=== PATIENT | female | born 1940 | race Caucasian/White ===

== ENCOUNTER 2020-09-29 11:03 | Day surgery (SDC) | payer MEDICARE, OTHER ==
[2020-09-29] VITALS (10 sets, daily range): BP systolic 115–164; BP diastolic 62–91
[~2020-09-29] VITALS: Ht 175.3 cm; Wt 106.1 kg
[2020-09-29] MEDS ORDERED: diphenhydrAMINE 25mg capsule PO PRN (11:40)
[2020-09-29] MEDS ORDERED: normal saline 1,000 ML IV SCH (11:40)
[2020-09-29] MEDS ORDERED: DIPH-423 PO (12:22)
[2020-09-29] MEDS ORDERED: SIMV-45 PO (12:22)
[2020-09-29] MEDS ORDERED: TRIA1TAB94 PO (12:22)
[2020-09-29] MEDS ORDERED: FLUT5POW4 INH (12:22)
[2020-09-29] MEDS ORDERED: ALBU8.5H8 INH (12:22)
[2020-09-29] MEDS ORDERED: LORA10TA7 PO (12:22)
[2020-09-29] MEDS ORDERED: DEXL60CA3 PO (12:22)
[2020-09-29] MEDS ORDERED: FLUT1BLS4 (12:22)
[2020-09-29 12:28] LABS: ALBUMIN 3.5 G/DL (3.4-5.0); ANION GAP 7 (8-16); BLOOD UREA NITROGEN 20 MG/DL (7-18); BUN/CREATININE RATIO 20.8 (6.6-38.0); CHLORIDE 107 MMOL/L (99-107); CREATININE 0.96 MG/DL (0.40-0.90); GLUCOSE 115 MG/DL (70-104); MAGNESIUM 2.2 MG/DL (1.5-2.4); POTASSIUM 3.6 MMOL/L (3.5-5.1); SODIUM 140 MMOL/L (135-145); TOTAL CARBON DIOXIDE 25.6 MMOL/L (24-32); eGFR 56 ML/MIN
[2020-09-29 12:33] LABS: BASOPHILS # (AUTO) 0.1 X10'3 (0-0.2); EOSINOPHILS # (AUTO) 0.1 X10'3 (0-0.9); EOSINOPHILS % (AUTO) 2.4 % (0-6); HEMATOCRIT 37.9 % (35.0-45.0); HEMOGLOBIN 12.7 g/dl (12.0-16.0); LYMPHOCYTES # (AUTO) 1.5 X10'3 (1.1-4.8); LYMPHOCYTES % (AUTO) 27.7 % (21-51); MEAN CORPUSCULAR HEMOGLOBIN 30.1 PG (27.0-31.0); MEAN CORPUSCULAR HGB CONC 33.5 g/dL (33.0-36.5); MEAN CORPUSCULAR VOLUME 89.7 FL (78-98); MONOCYTES # (AUTO) 0.6 X10'3 (0-0.9); MONOCYTES % (AUTO) 10.6 % (2-12); NEUTROPHILS % (AUTO) 58.3 % (42-75); PLATELET COUNT 188 X10'3 (140-440); RED BLOOD COUNT 4.22 X10'6 (4.20-5.60); WHITE BLOOD COUNT 5.2 X10'3 (4.5-11.0)
[2020-09-29] MEDS ORDERED: LIDOcaine 1% (10mg/ml)w/preservative injection 20ml MDV ONE (13:22)
[2020-09-29] MEDS ORDERED: midazolam 1 mg/ML 2ml injection ONE (13:22)
[2020-09-29] MEDS ORDERED: fentaNYL/PF 50MCG/1 ML 2ML syringe ONE (13:22)
[2020-09-29] MEDS ORDERED: iohexol 350 MG/ML 50ML vial IV ONE (13:23)
[2020-09-29] MEDS ORDERED: heparin 1,000unit/ml 10ml vial 10 ML ONE (13:23)
[2020-09-29] MEDS ORDERED: iohexol 350MG/ML 100ml bottle IV ONE (13:23)
[2020-09-29] MEDS ORDERED: heparin 1,000 UNITS/NS 500ml 500 ML ONE ×2 (13:23)
[2020-09-29] MEDS ORDERED: proCHLORperazine 10 MG/2 ml inj IV PRN (14:45)
[2020-09-29] MEDS ORDERED: HYDROcodone/acetaminophen 5mg/325mg tablet PO PRN (14:45)
[2020-09-29] MEDS ORDERED: ondansetron/PF 4mg/2ml inj IV PRN (14:45)
[2020-09-29] MEDS ORDERED: HYDROcodone/acetaminophen 10/325mg tab PO PRN (14:45)
== END 2020-09-29 17:40 | disposition home or self-care (01) ==
LOC: SSTAY O 11:03
PROVIDERS: ATTEND Internal Medicine Cardiovascular Disease
DX: R94.39 Abnormal result of other cardiovascular function study (principal); I25.10 Atherosclerotic heart disease of native coronary artery without angina pectoris; I25.82 Chronic total occlusion of coronary artery; C50.919 Malignant neoplasm of unspecified site of unspecified female breast; I25.5 Ischemic cardiomyopathy; G47.30 Sleep apnea, unspecified; I10 Essential (primary) hypertension; E78.5 Hyperlipidemia, unspecified; J44.9 Chronic obstructive pulmonary disease, unspecified; K21.9 Gastro-esophageal reflux disease without esophagitis; Z79.899 Other long term (current) drug therapy; Z90.710 Acquired absence of both cervix and uterus; Z96.611 Presence of right artificial shoulder joint; Z98.890 Other specified postprocedural states; Z96.659 Presence of unspecified artificial knee joint; Z87.891 Personal history of nicotine dependence; Z72.89 Other problems related to lifestyle; Z82.49 Family history of ischemic heart disease and other diseases of the circulatory system; Z80.9 Family history of malignant neoplasm, unspecified
CPT/HCPCS: 36415; 80048; 83735; 85025; 85610; 93005; 93458; 99152; C1760; C1769; C1894; J1644; J2001; J2250; J3010; J7030; Q0163; Q9967; 99153; A4620; A6258

== ENCOUNTER 2020-10-25 14:37 | Emergency (ER) | payer MEDICARE, OTHER ==
[~2020-10-25] VITALS: Ht 175.3 cm; Wt 104.5 kg
[~2020-10-25 14:37] MED LIST: ALBU8.5H17 INH; ASPI-611 PO; CALC-642 PO; CHOL400T8 PO; DIPH-423 PO; FLUT16SP2 BOTHNARES; FLUT1BLS4 INH; HYDR-3965 PO; LOP12.5T PO; LORA10TA7 PO; MULT-1085 PO; PANT-47 PO; SIMV-45 PO; TRIA1TAB94 PO; [UNRECOGNIZED DRUG - CODE] TOP
[2020-10-25 15:40] LABS: BASOPHILS # (AUTO) 0.2 X10'3 (0-0.2); BASOPHILS % (AUTO) 1.2 % (0-1); EOSINOPHILS # (AUTO) 0.3 X10'3 (0-0.9); EOSINOPHILS % (AUTO) 2.5 % (0-6); HEMATOCRIT 33.8 % (35.0-45.0); HEMOGLOBIN 11.2 g/dl (12.0-16.0); LYMPHOCYTES # (AUTO) 2.6 X10'3 (1.1-4.8); LYMPHOCYTES % (AUTO) 20.8 % (21-51); MEAN CORPUSCULAR HEMOGLOBIN 29.7 PG (27.0-31.0); MEAN PLATELET VOLUME 7.7 FL (7.4-10.4); MONOCYTES # (AUTO) 1.4 X10'3 (0-0.9); MONOCYTES % (AUTO) 10.9 % (2-12); NEUTROPHILS % (AUTO) 64.6 % (42-75); PLATELET COUNT 426 X10'3 (140-440); RED BLOOD COUNT 3.76 X10'6 (4.20-5.60); RED CELL DISTRIBUTION WIDTH 14.8 % (11.5-14.5); WHITE BLOOD COUNT 12.4 X10'3 (4.5-11.0)
[2020-10-25 15:58] LABS: ALANINE AMINOTRANSFERASE 36 U/L (12-78); ALBUMIN 3.1 G/DL (3.4-5.0); ALBUMIN/GLOBULIN RATIO 0.7 (1.1-1.5); ALKALINE PHOSPHATASE 117 IU/L (46-116); ANION GAP 12 (8-16); ASPARTATE AMINO TRANSFERASE 47 U/L (10-37); BILIRUBIN,TOTAL 0.6 MG/DL (0.1-1.0); BLOOD UREA NITROGEN 31 MG/DL (7-18); CHLORIDE 102 MMOL/L (99-107); CREATININE 1.24 MG/DL (0.40-0.90); GLUCOSE 143 MG/DL (70-104); POTASSIUM 4.2 MMOL/L (3.5-5.1); SODIUM 139 MMOL/L (135-145); TOTAL CARBON DIOXIDE 24.9 MMOL/L (24-32); TOTAL PROTEIN 7.7 G/DL (6.4-8.2); eGFR 42 ML/MIN
--- NOTE | 2020-10-25 16:52 | NUR ---
VASC IN ROOM WITH PATIENT
[2020-10-25] MEDS ORDERED: CEPH-585 PO (17:12)
[2020-10-25 17:20] VITALS: BP 149/82
[2020-11-04] MEDS ORDERED: LEVO500T89 PO (10:05)
== END 2020-10-25 17:23 | disposition home or self-care (01) ==
LOC: ER 14:38
DX: L03.116 Cellulitis of left lower limb (principal); I25.10 Atherosclerotic heart disease of native coronary artery without angina pectoris; Z79.2 Long term (current) use of antibiotics; Z79.899 Other long term (current) drug therapy; Z79.82 Long term (current) use of aspirin; Z95.5 Presence of coronary angioplasty implant and graft
CPT/HCPCS: 36415; 73630; 80053; 84145; 85025; 93971; 99285

== ENCOUNTER 2020-12-09 08:40 | Day surgery (SDC) | payer MEDICARE, OTHER ==
[~2020-12-09] VITALS: Ht 175.3 cm; Wt 98.9 kg
[~2020-12-09 08:40] MED LIST changes: -ASPI-611 PO; +DOXY-224 PO; -HYDR-3965 PO; -LOP12.5T PO
[2020-12-09] MEDS ORDERED: FURO-150 PO (09:33)
[2020-12-09] MEDS ORDERED: albumin 25% 100mL bottle x 1 IV PRN (09:40)
[2020-12-09 10:05] VITALS: BP 98/61
--- NOTE | 2020-12-09 10:45 | NUR ---
Patient discharged without intervention. Given her dc orders and instructions for follow up .
[2020-12-09] MEDS ORDERED: COVID-19 VACC, MRNA(PFIZER)/PF--BNT162b2 syringe IMVAC ONE (10:50)
== END 2020-12-09 10:45 | disposition home or self-care (01) ==
LOC: SSTAY O 08:40
PROVIDERS: ATTEND Radiology Vascular & Interventional Radiology
DX: J90 Pleural effusion, not elsewhere classified (principal); Z53.8 Procedure and treatment not carried out for other reasons; I25.10 Atherosclerotic heart disease of native coronary artery without angina pectoris; I10 Essential (primary) hypertension; E78.5 Hyperlipidemia, unspecified; G47.30 Sleep apnea, unspecified; J44.9 Chronic obstructive pulmonary disease, unspecified; K21.9 Gastro-esophageal reflux disease without esophagitis; Z95.1 Presence of aortocoronary bypass graft; Z90.710 Acquired absence of both cervix and uterus; Z96.611 Presence of right artificial shoulder joint; Z96.659 Presence of unspecified artificial knee joint; Z90.721 Acquired absence of ovaries, unilateral; Z98.890 Other specified postprocedural states; Z87.891 Personal history of nicotine dependence; Z79.899 Other long term (current) drug therapy
CPT/HCPCS: 0001A; 76604; 91300

== ENCOUNTER 2022-01-22 07:57 | Day surgery (SDC) | payer MEDICARE, OTHER ==
[2022-01-22] VITALS (11 sets, daily range): BP systolic 117–157; BP diastolic 57–86
[~2022-01-22] VITALS: Ht 167.6 cm; Wt 94.4 kg
[~2022-01-22 07:57] MED LIST changes: +FURO-150 PO
[2022-01-22] MEDS ORDERED: diphenhydrAMINE 25mg capsule PO PRN ×2 (08:20→18:05)
[2022-01-22 08:58] LABS: BASOPHILS # (AUTO) 0.1 X10'3 (0-0.2); BASOPHILS % (AUTO) 1.5 % (0-1); EOSINOPHILS # (AUTO) 0.2 X10'3 (0-0.9); EOSINOPHILS % (AUTO) 3.3 % (0-6); HEMOGLOBIN 12.2 g/dl (12.0-16.0); LYMPHOCYTES # (AUTO) 1.8 X10'3 (1.1-4.8); LYMPHOCYTES % (AUTO) 37.1 % (21-51); MEAN CORPUSCULAR HEMOGLOBIN 29.8 PG (27.0-31.0); MEAN CORPUSCULAR HGB CONC 33.8 g/dL (33.0-36.5); MEAN CORPUSCULAR VOLUME 88.1 FL (78-98); MEAN PLATELET VOLUME 8.4 FL (7.4-10.4); MONOCYTES # (AUTO) 0.5 X10'3 (0-0.9); MONOCYTES % (AUTO) 10.7 % (2-12); NEUTROPHILS # (AUTO) 2.3 X10'3 (1.8-7.7); NEUTROPHILS % (AUTO) 47.4 % (42-75); PLATELET COUNT 114 X10'3 (140-440); RED BLOOD COUNT 4.09 X10'6 (4.20-5.60); RED CELL DISTRIBUTION WIDTH 14.9 % (11.5-14.5); WHITE BLOOD COUNT 4.9 X10'3 (4.5-11.0)
[2022-01-22] MEDS ORDERED: CARV-50 PO (09:19)
[2022-01-22] MEDS ORDERED: CETI-90 PO (09:19)
[2022-01-22] MEDS ORDERED: POTA-192 PO (09:19)
[2022-01-22] MEDS ORDERED: ASPI81TA52 PO (09:19)
[2022-01-22] MEDS ORDERED: BUDE0.5A11 IH (09:19)
[2022-01-22] MEDS: normal saline 1,000 ML IV SCH ×2 (09:25→18:20)
[2022-01-22 10:04] LABS: ALBUMIN 3.1 G/DL (3.4-5.0); ANION GAP 7 (8-16); BLOOD UREA NITROGEN 24 MG/DL (7-18); BUN/CREATININE RATIO 25.5 (6.6-38.0); CALCIUM 8.8 MG/DL (8.5-10.1); CHLORIDE 106 MMOL/L (99-107); CREATININE 0.94 MG/DL (0.40-0.90); GLUCOSE 101 MG/DL (70-104); MAGNESIUM 1.9 MG/DL (1.5-2.4); POTASSIUM 3.9 MMOL/L (3.5-5.1); SODIUM 141 MMOL/L (135-145); TOTAL CARBON DIOXIDE 27.8 MMOL/L (24-32); eGFR 57 ML/MIN
[2022-01-22] MEDS ORDERED: midazolam 1 mg/ML 2ml injection ONE (11:13)
[2022-01-22] MEDS ORDERED: iohexol 350MG/ML 100ml bottle IV ONE ×2 (11:13→13:20)
[2022-01-22] MEDS ORDERED: fentaNYL/PF 50MCG/1 ML 2ML syringe ONE (11:13)
[2022-01-22] MEDS ORDERED: LIDOCAINE 1%/EPI 1:100,000 inj. 10 ML multi-dose vial ONE ×2 (11:13→12:37)
[2022-01-22] MEDS ORDERED: heparin 1,000 UNITS/NS 500ml 500 ML ONE ×2 (11:14→12:37)
[2022-01-22] MEDS ORDERED: LIDOcaine 1% 30ml preserv. free vial ONE (12:52)
[2022-01-22] MEDS ORDERED: heparin 1,000unit/ml 10ml vial 10 ML ONE (13:30)
[2022-01-22] MEDS ORDERED: ticagrelor 90mg tablet ONE (13:44)
[2022-01-22] MEDS: normal saline 1000ml 1,000 ML IV SCH ×2 (14:50→20:24)
[2022-01-22] MEDS ORDERED: ondansetron/PF 4mg/2ml inj IV PRN (14:50)
[2022-01-22] MEDS ORDERED: HYDROcodone/acetaminophen 5mg/325mg tablet PO PRN (14:50)
[2022-01-22] MEDS ORDERED: proCHLORperazine 10 MG/2 ml inj IV PRN (14:50)
[2022-01-22] MEDS ORDERED: HYDROcodone/acetaminophen 10/325mg tab PO PRN (14:50)
--- NOTE | 2022-01-22 16:20 | NUR ---
BP at 1610 124/64 with HR 53.Patient stated pressure in chest and some shortness of breath; adjusted patient in bed; no change to symptoms; Patient started to complain of flushing/sweating and stated she just didn't feel right, like she could pass out. Started to get EKG. 1620 BP now 61/24 with HR 39. Rapid response called and Dr. Us called. Repeat BP 61/35, HR 36. Patient reverse trendelenburg with IV fluid bolus infusing. Rapid response team arrived. Dr. Us at bedside. Order for vascular ultrasound to evaluate for pseudoanuerysm. Patient HR at 1624 now 113/60, HR 57. Patient states that she feels better, less chest pressure, and not feeling hot or flushed. at bedside as well.
--- NOTE | 2022-01-22 16:30 | NUR ---
Ry re-applied. Dr. Us ordered for patient to be admitted overnight.
[2022-01-22] MEDS ORDERED: atropine 0.1mg/ml 10ml syringe IV STA (17:01)
--- NOTE | 2022-01-22 17:15 | NUR ---
back from pharmacy. Goldie in hand.
[2022-01-22] MEDS ORDERED: ALBUTEROL INHALER 1 PUFF/90 MCG INHALation IH PRN (18:05)
--- NOTE | 2022-01-22 18:36 | NUR ---
called report to Chaz NOLAND on tele. All questions answered.
--- NOTE | 2022-01-22 19:09 | NUR ---
patient taken to Telemetry room [id number]. All belongings with patient on transfer. Chaz NOLAND at bedside.
[2022-01-22] MEDS ORDERED: atorvastatin 20mg tablet PO SCH (21:00)
[2022-01-22] MEDS: albuterol 2.5 MG/3 ML nebule NEB PRN (21:46)
[2022-01-22] MEDS: budesonide 0.5mg/2ml UD nebule IH SCH (21:47)
[2022-01-22] MEDS: potassium chloride 10mEq ER tablet PO SCH (21:53)
[2022-01-22] MEDS: furosemide 20MG tablet PO SCH (21:54)
[2022-01-22] MEDS: carVEDilol 12.5mg tablet PO SCH (21:54)
--- NOTE | 2022-01-22 22:58 | NUR ---
1999 darvedilol 12.5 mg scanned but not given due to low pulse gabi in the 50,s Buster Srinivasan RN
[2022-01-23] MEDS: normal saline 1000ml 1,000 ML IV SCH ×2 (00:50→05:50)
[2022-01-23 02:00] VITALS: BP 111/61
[2022-01-23] MEDS ORDERED: hydrocortisone 2.5% cream 28.4gm TP PRN (03:40)
[2022-01-23] MEDS ORDERED: HYDROCORTISONE 2% TOP (03:53)
[2022-01-23 08:00] VITALS: BP 124/58
[2022-01-23] MEDS ORDERED: ipratropium/albuterol 3ml nebule NEB SCH (08:00)
[2022-01-23] MEDS ORDERED: calcium carbonate 500mg chew tablet PO SCH (08:00)
[2022-01-23] MEDS ORDERED: pantoprazole 40mg Tablet.DR PO SCH (08:00)
[2022-01-23] MEDS ORDERED: aspirin 81mg, enteric-coated 1 TAB TABLET.DR PO SCH (08:00)
[2022-01-23] MEDS ORDERED: cholecalciferol (vitamin D3) 400 unit (10mcg) tablet PO SCH (08:00)
[2022-01-23] MEDS ORDERED: budesonide 0.5mg/2ml UD nebule IH SCH (08:00)
[2022-01-23] MEDS ORDERED: multivitamins, therapeutics tablet PO SCH (08:00)
[2022-01-23] MEDS ORDERED: ticagrelor 90mg tablet PO SCH (08:00)
[2022-01-23] MEDS ORDERED: cetirizine 10mg tablet PO SCH (08:00)
[2022-01-23] MEDS ORDERED: fluticasone nasal spray 16GM bottle NS SCH (08:00)
[2022-01-23] MEDS: budesonide 0.5mg/2ml UD nebule IH SCH (08:06)
[2022-01-23] MEDS: albuterol 2.5 MG/3 ML nebule NEB PRN (08:07)
[2022-01-23] MEDS: normal saline 1,000 ML IV SCH (08:38)
[2022-01-23] MEDS: furosemide 20MG tablet PO SCH (08:40)
[2022-01-23] MEDS: carVEDilol 12.5mg tablet PO SCH (08:41)
[2022-01-23] MEDS: potassium chloride 10mEq ER tablet PO SCH (08:41)
--- NOTE | 2022-01-23 10:31 | NUR ---
Pt stable for DC home. Received first dose of Brilinta. bringing filled prescription of Brilinta. Discussed discharge instructions with patient and verbalized understanding.
== END 2022-01-23 10:44 | disposition home or self-care (01) ==
LOC: SSTAY O 07:57 → PCU 3S 19:45 → SSTAY O 01-23 10:44
PROVIDERS: ATTEND Internal Medicine Cardiovascular Disease
DX: I25.118 Atherosclerotic heart disease of native coronary artery with other forms of angina pectoris (principal); I25.82 Chronic total occlusion of coronary artery; Z79.899 Other long term (current) drug therapy; J44.9 Chronic obstructive pulmonary disease, unspecified; K21.9 Gastro-esophageal reflux disease without esophagitis; G47.33 Obstructive sleep apnea (adult) (pediatric); I10 Essential (primary) hypertension; E78.5 Hyperlipidemia, unspecified; I25.5 Ischemic cardiomyopathy; Z90.710 Acquired absence of both cervix and uterus; Z98.890 Other specified postprocedural states; Z90.721 Acquired absence of ovaries, unilateral; G47.30 Sleep apnea, unspecified
CPT/HCPCS: 36415; 80048; 83735; 85025; 85610; 92978; 93005; 93459; 93926; 94640; 94760; 94799; 99152; 99153; A6258; C1725; C1751; C1760; C1769; C1874; C1894; C9600; J1644; J2250; J3010; J3490; J7030; Q0163; Q9967; A4620; G0378

== ENCOUNTER 2024-01-23 13:32 | Emergency (ER) | payer MEDICARE, OTHER ==
[~2024-01-23] VITALS: Ht 170.2 cm; Wt 77.5 kg
[~2024-01-23 13:32] MED LIST changes: +ASPI81TA52 PO; +BUDE0.5A11 IH; +CARV-50 PO; +CETI-90 PO; -DOXY-224 PO; +HYDROCORTISONE 2% TOP; -LORA10TA7 PO; +POTA-192 PO; -TRIA1TAB94 PO; -[UNRECOGNIZED DRUG - CODE] TOP
[2024-01-23 13:41] VITALS: BP 178/74; PULSE 73; RESP 18; TEMP 97.8; O2SAT 98
== END 2024-01-23 19:08 | disposition left against medical advice (07) ==
LOC: ER 13:33
DX: R10.84 Generalized abdominal pain (principal); Z53.21 Procedure and treatment not carried out due to patient leaving prior to being seen by health care provider